=== PATIENT | male | born 1975 | race African-American/Black ===

== ENCOUNTER 2018-11-23 18:10 | Emergency (ER) | payer BC ==
[~2018-11-23] VITALS: Ht 182.8 cm; Wt 117.0 kg
[~2018-11-23 18:10] MED LIST: ANAPROX DS550 MG PO; TRAMADOL HCL50 MG PO; VICODIN 5/500 505 MG PO
[2018-11-23] MEDS ORDERED: PRINIVIL10 MG PO (18:19)
[2018-11-23] MEDS ORDERED: HYDR25T PO (18:19)
[2018-11-23 19:13] LABS: BASO # 0.1 10*3/uL (0.0-0.1); BASO % 0.5 % (0.0-1.0); EOS # 0.2 10*3/uL (0.0-0.4); EOS % 1.7 % (1.0-4.0); HEMATOCRIT 43.3 % (42.0-52.0); HEMOGLOBIN 13.8 g/dl (14.0-18.0); LYMPH # 2.5 10*3/uL (1.3-4.4); LYMPH % 26.6 % (27.0-41.0); MEAN CELL VOLUME 87.7 fl (80.0-94.0); MEAN CORPUSCULAR HGB 27.9 pg (27.0-31.0); MEAN CORPUSCULAR HGB CONC 31.9 g/dl (33.0-37.0); MEAN PLATELET VOLUME 10.2 fl (9.6-12.3); MONO # 0.7 10*3/uL (0.1-1.0); MONO % 7.1 % (3.0-9.0); NEUT % 63.9 % (47.0-73.0); PLATELET COUNT AUTOMATED 247 10*3/uL (130-400); RED BLOOD COUNT 4.94 10*6/uL (4.50-5.90); RED CELL DISTRI WIDTH 12.9 % (0-14.5); WHITE BLOOD COUNT 9.3 10*3/uL (4.8-10.8)
[2018-11-23 19:30] LABS: ALBUMIN 3.9 gm/dl (3.1-4.5); ALKALINE PHOSPHATASE 84 U/L (45-117); BUN 20 mg/dl (7-24); CHLORIDE 104 mmol/L (98-107); CREATININE 1.35 mg/dL (0.70-1.30); POTASSIUM 3.6 mmol/L (3.5-5.1); SGOT/AST 24 IU/L (3-35); SGPT/ALT 41 U/L (12-78); SODIUM 138 mmol/L (136-145); TOTAL PROTEIN 7.7 gm/dL (6.4-8.2); URIC ACID 7.7 mg/dL (3.5-7.2)
[2018-11-23] MEDS ORDERED: PREDNISONE10 MG PO (21:36)
== END 2018-11-23 21:50 | disposition home or self-care (01) ==
LOC: ED 18:10
PROVIDERS: Emergency Medicine
DX: M10.9 Gout, unspecified (principal); M79.671 Pain in right foot; Z91.040 Latex allergy status; Z79.899 Other long term (current) drug therapy

== ENCOUNTER → 2020-04-15 | Outpatient (CLI) | payer BC ==
[~2020-04-15] MED LIST changes: +HYDR25T PO; +PREDNISONE10 MG PO; +PRINIVIL10 MG PO
== END | disposition home or self-care (01) ==
LOC: COVID19 10:14
PROVIDERS: ATTEND Internal Medicine
DX: Z20.822 Contact with and (suspected) exposure to COVID-19 (principal)

== ENCOUNTER 2021-07-06 18:47 | Emergency (ER) | payer BC ==
[~2021-07-06] VITALS: Ht 182.8 cm; Wt 113.4 kg
[2021-07-06] MEDS ORDERED: CEPHALEXIN500 M1 PO (19:31)
[2021-07-06] MEDS ORDERED: VIBRAMYCIN100 MG PO (19:31)
== END 2021-07-06 19:40 | disposition home or self-care (01) ==
LOC: ED 18:47
DX: L02.11 Cutaneous abscess of neck (principal); Z79.899 Other long term (current) drug therapy

== ENCOUNTER 2023-10-06 07:06 | Emergency (ER) | payer BC ==
[~2023-10-06] VITALS: Wt 118.8 kg
[~2023-10-06 07:06] MED LIST changes: +CEPHALEXIN500 M1 PO; +VIBRAMYCIN100 MG PO
[2023-10-06] MEDS ORDERED: hydrALAZINE hydrochloride 20 MG/ML VIAL IV ONE (07:10)
[2023-10-06] MEDS ORDERED: SODIUM CHLORIDE 0.9% 1,000 ML IV ONE (07:10)
[2023-10-06] MEDS ORDERED: Ondansetron Hydrochloride 4 MG/2 ML VIAL IV ONE (07:25)
[2023-10-06 08:04] LABS: BILIRUBIN Negative (Negative); BLOOD Negative (Negative); CLARITY Clear (Clear); COLOR Yellow (Yellow); GLUCOSE 2+ (Negative); KETONE Negative (Negative); LEUKO ESTERASE Negative (Negative); NITRITE Negative (Negative); PH 7.5 (4.5-8.0); SPECIFIC GRAVITY 1.015 (1.001-1.030); UROBILINOGEN 0.2 E.U./dl (0.0-1.0)
[2023-10-06] MEDS ORDERED: diphenhydrAMINE hydrochloride 50 MG/ML VIAL IV ONE (08:05)
[2023-10-06] MEDS ORDERED: Metoclopramide Hydrochloride 10 MG/2 ML AMP IV ONE (08:05)
[2023-10-06 08:07] LABS: BASO # 0.1 10*3/uL (0.0-0.1); BASO % 0.4 % (0.0-1.0); EOS # 0.1 10*3/uL (0.0-0.4); EOS % 0.6 % (1.0-4.0); HEMATOCRIT 43.4 % (42.0-52.0); LYMPH # 2.8 10*3/uL (1.3-4.4); LYMPH % 17.2 % (27.0-41.0); MEAN CELL VOLUME 85.1 fl (80.0-94.0); MEAN CORPUSCULAR HGB CONC 32.9 g/dl (33.0-37.0); MEAN PLATELET VOLUME 10.4 fl (9.6-12.3); MONO # 0.7 10*3/uL (0.1-1.0); MONO % 4.4 % (3.0-9.0); NEUT # 12.2 10*3/uL (2.3-7.9); NEUT % 76.5 % (47.0-73.0); PLATELET COUNT AUTOMATED 247 10*3/uL (130-400); RED CELL DISTRI WIDTH 13.2 % (0-14.5)
[2023-10-06 08:19] LABS: ACT PARTIAL THROMBO TIME 24.2 SECONDS (20.0-32.1)
[2023-10-06 08:42] LABS: RBC 0-2 rbc/hpf (0-2); WBC 0-2 wbc/hpf (0-5)
[2023-10-06] MEDS ORDERED: TOUJEO SOL300 UNIT/1 SQ (08:44)
[2023-10-06 08:45] LABS: URINE AMPHETAMINES Negative (1000ng/ml); URINE BARBITURATES Negative (200ng/ml); URINE BENZODIAZEPINES Negative (200ng/ml); URINE CANNABINOIDS (THC) Negative (50ng/ml); URINE COCAINE Negative (300ng/ml); URINE METHADONE Negative (300ng/ml); URINE OPIATES Negative (300ng/ml); URINE PHENCYCLIDINE Negative (25ng/ml)
[2023-10-06] MEDS ORDERED: ASPIRIN ADULT L81 M2 PO (08:45)
[2023-10-06] MEDS ORDERED: VITAMIN D350 MC2 PO (08:46)
[2023-10-06] MEDS ORDERED: TRULICITY4.5 MG/0.5 SQ (08:46)
[2023-10-06 08:47] LABS: ALKALINE PHOSPHATASE 87 U/L (46-116); BUN 12 mg/dl (9-23); CHLORIDE 105 mmol/L (98-107); POTASSIUM 3.1 mmol/L (3.4-5.1); SGPT/ALT 34 U/L (5-49); TOTAL PROTEIN 7.5 gm/dL (6.0-8.0)
[2023-10-06] MEDS ORDERED: FARXIGA10 M1 PO (08:47)
[2023-10-06 08:51] LABS: ETHYL ALCOHOL < 3.0 mg/dl (<3)
[2023-10-06] MEDS ORDERED: Labetalol Hydrochloride 20 MG/4 ML SYR IV ONE (08:55)
[2023-10-06] MEDS ORDERED: MANNITOL IV ONE (09:05)
[2023-10-06] MEDS ORDERED: MANNITOL 100 GM/500 ML BAG IV ONE (09:20)
== END 2023-10-06 10:16 | disposition short-term general hospital (02) ==
LOC: ED 07:06
PROVIDERS: Internal Medicine
DX: I60.9 Nontraumatic subarachnoid hemorrhage, unspecified (principal); I10 Essential (primary) hypertension; R40.4 Transient alteration of awareness